=== PATIENT | female | born 1970 | race Asian ===

== ENCOUNTER 2016-10-14 19:22 | Emergency (ER) | payer OTHER ==
[2016-10-14 19:25] VITALS: BP 129/70; PULSE 70; RESP 16; TEMP 99.5; O2SAT 100
--- NOTE | 2016-10-14 19:31 | PD ---
Physical Exam Date Seen by Provider: Oct 14, 2016 Time Seen by Provider: 19:29 Narrative 45 yo female here for lacerations to index and middle finger right hand. Happened earlier today. With a lawnmower. Amputation noted. dressing applied at triage. No other medical issues. Vitals are stable in triage. Awaiting Bed placement. Data Data Last Documented VS Vital Signs Date Time Temp Pulse Resp B/P Pulse Ox O2 Delivery O2 Flow Rate FiO2 10/14/16 19:25 99.5 70 16 129/70 100 Room Air [facility] Medical Record Reviewed: Yes Supervised Visit with DHEERAJ: Des Mcconnell Oct 14, 2016 19:30
[2016-10-14] MEDS ORDERED: SODIUM CHLOR 0.9% 1000 ML INJ 1,000 ML IV SCH (19:52)
[2016-10-14] MEDS ORDERED: TETANUS/DIPHTHERIA TOXOID ADULT 0.5 ML VIAL IM ONE (20:00)
[2016-10-14] MEDS ORDERED: SODIUM CHLORIDE 0.9% FLUSH 10 ML FLUSH IV FLUSH PRN (20:00)
[2016-10-14] MEDS ORDERED: ONDANSETRON HCL 4 MG/2 ML VIAL IVP ONE (20:00)
[2016-10-14] MEDS ORDERED: ceFAZolin 2 GM PREMIX 50 ML IV ONE (20:00)
[2016-10-14] MEDS ORDERED: MORPHINE SULFATE 4 MG/ML INJ IV PUSH ONE (20:00)
--- NOTE | 2016-10-14 20:22 | PD ---
HPI Chief Complaint: Laceration/Skin Injury Time Seen by Provider: 20:16 Travel History International Travel<30 days: Yes Contact w/Intl Traveler<30days: Yes Name of Country Traveled to: [place] Traveled to known affect area: Yes History of Present Illness HPI 45-year-old left-hand dominant female presents to the ED for evaluation of partial amputation of second and third digits of the right hand. 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 She is unsure of the date of her last tetanus immunization. Last ate around 1:30 this afternoon, full lunch. PFSH Past Medical History Medical History: Denies Significant Hx ?: Not Past Surgical History Surgical History: No Previous Surgery Section: Yes Social History Alcohol Use: No Tobacco Use: No Allergies-Medications (Allergen,Severity, Reaction): Coded Allergies: No Known Allergies (Unverified , 10/14/16) Reported Meds & Prescriptions Reported Meds & Active Scripts Active Ultram (Tramadol HCl) 50 Mg Tab 50 Mg PO Q4H PRN Doxycycline Hyclate 100 Mg Cap 100 Mg PO BID Review of Systems Except as stated in HPI: all other systems reviewed are Neg Physical Exam Narrative GENERAL: Well-nourished, well-developed petite female in no acute distress. SKIN: Focused skin assessment warm/dry. HEAD: Normocephalic. EYES: No scleral icterus. No injection or drainage. NECK: Supple, trachea midline. No JVD or lymphadenopathy. CARDIOVASCULAR: Regular rate and rhythm without murmurs, gallops, or rubs. RESPIRATORY: Breath sounds equal bilaterally. No accessory muscle use. GASTROINTESTINAL: Abdomen soft, non-tender, nondistended. MUSCULOSKELETAL: No cyanosis, or edema. FOCUSED RIGHT UPPER EXTREMITY EXAM: 2+ radial pulse. Partial amputation of the distal tips of digits 2 and 3. No pulsatile bleeding. Sensation intact. Satisfactory capillary refill. Patient retains active motion of the fingers, though this elicits pain. BACK: Nontender without obvious deformity. No CVA tenderness. Data Data Last Documented VS Vital Signs Date Time Temp Pulse Resp B/P Pulse Ox O2 Delivery O2 Flow Rate FiO2 10/14/16 19:25 99.5 70 16 129/70 100 Room Air Orders Basic Metabolic Panel (Bmp) (10/14/16 19:52) Complete Blood Count With Diff (10/14/16 19:52) Iv Access Insert/Monitor (10/14/16 19:52) Morphine Inj (Morphine Inj) (10/14/16 20:00) Ondansetron Inj (Zofran Inj) (10/14/16 20:00) Sodium Chlor 0.9% 1000 Ml Inj (Ns 1000 M (10/14/16 19:52) Sodium Chloride 0.9% Flush (Ns Flush) (10/14/16 20:00) Cefazolin 2 Gm Premix (Ancef 2 Gm Premix (10/14/16 20:00) Tetanus/Diphtheria Tox Adult (Tetanus/Di (10/14/16 20:00) Hand, Limited (2vws) (10/14/16 19:52) NPO (10/14/16 19:58) Bupivacaine Pf 0.5% Inj (Marcaine Pf 0.5 (10/14/16 20:30) Labs Laboratory Tests Test 10/14/16 20:10 White Blood Count 9.6 TH/MM3 Red Blood Count 4.22 MIL/MM3 Hemoglobin 12.8 GM/DL Hematocrit 37.8 % Mean Corpuscular Volume 89.6 FL Mean Corpuscular Hemoglobin 30.3 PG Mean Corpuscular Hemoglobin 33.8 % Concent Red Cell Distribution Width 13.8 % Platelet Count 190 TH/MM3 Mean Platelet Volume 8.2 FL Neutrophils (%) (Auto) 80.6 % Lymphocytes (%) (Auto) 13.0 % Monocytes (%) (Auto) 3.8 % Eosinophils (%) (Auto) 1.8 % Basophils (%) (Auto) 0.8 % Neutrophils # (Auto) 7.7 TH/MM3 Lymphocytes # (Auto) 1.2 TH/MM3 Monocytes # (Auto) 0.4 TH/MM3 Eosinophils # (Auto) 0.2 TH/MM3 Basophils # (Auto) 0.1 TH/MM3 CBC Comment DIFF FINAL Differential Comment Sodium Level 137 MEQ/L Potassium Level 3.8 MEQ/L Chloride Level 105 MEQ/L Carbon Dioxide Level 25.2 MEQ/L Anion Gap 7 MEQ/L Blood Urea Nitrogen 11 MG/DL Creatinine 0.65 MG/DL Estimat Glomerular Filtration 98 ML/MIN Rate Random Glucose 111 MG/DL Calcium Level 8.4 MG/DL MDM Medical Decision Making Medical Screen Exam Complete: Yes Emergency Medical Condition: Yes Differential Diagnosis Laceration versus traumatic amputation versus open fracture versus A for tetanus immunization versus other Narrative Course 45-year-old left-hand dominant female presents to the ED for evaluation of partial amputation of second and third digits of the right hand. 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 She is unsure of the date of her last tetanus immunization. Last ate around 1:30 this afternoon, full lunch. Vitals reviewed. On physical exam there is traumatic amputation of the distal tips of fingers 2 and 3 of the right hand. No pulsatile bleeding. Cap refill is satisfactory. Sensation intact. Range of motion intact but painful. IV was established. Patient was administered 2 g Ancef, 1 L fluid, 2 mg morphine, 4 mg Zofran IV. X-rays reveal amputation of the distal tips of 2 and 3 with comminuted fractures per my read. I sent pictures to Dr. Terrell and spoke with him by phone. He will come to the emergency room to evaluate the patient. He was ordered nothing by mouth in case surgery in the OR is necessary. Patient signed out to Dr. Mcmahon. Please see his note for disposition. Diagnosis Primary Impression: Partial traumatic transphalangeal amputation of finger Qualified Code: S68.629A - Partial traumatic transphalangeal amputation of finger, initial encounter Referrals: Meli Terrell MD Patient Instructions: Finger Amputation (ED), General Instructions Additional Instructions: Rest, hydrate. Keep her wounds clean, dry and covered. Follow-up with Dr. Terrell as discussed. Return to the ED for any urgent or emergent medical condition. Scripts Tramadol (Ultram)50 Mg Tab50 Mg PO Q4H PRN (PAIN) #28 TAB Prov:Nadeem Mcmahon MD 10/14/16 Doxycycline Hyclate 100 Mg [id number] Mg PO BID #20 CAP Prov:Nadeem Mcmahon MD 10/14/16 Disposition: 01 DISCHARGE HOME Condition: Stable Melida Pérez Oct 14, 2016 20:22
[2016-10-14 20:27] LABS: AUTOMATED NEUTROPHIL # 7.7 TH/MM3 (1.8-7.7); BASOPHIL # 0.1 TH/MM3 (0-0.2); BASOPHIL % 0.8 % (0.0-2.0); EOSINOPHIL # 0.2 TH/MM3 (0-0.4); EOSINOPHIL % 1.8 % (0.0-4.0); HEMATOCRIT 37.8 % (35.0-46.0); HEMO FLAGS DIFF FINAL; LYMPHOCYTE # 1.2 TH/MM3 (1.0-4.8); MEAN CELL VOLUME 89.6 FL (80.0-100.0); MEAN CORPUSCULAR HEMOGLOBIN 30.3 PG (27.0-34.0); MEAN CORPUSCULAR HGB CONC 33.8 % (32.0-36.0); MONO % 3.8 % (0.0-8.0); NEUT % 80.6 % (16.0-70.0); PLATELET COUNT 190 TH/MM3 (150-450); RED BLOOD COUNT 4.22 MIL/MM3 (4.00-5.30); RED CELL DISTRIBUTION WIDTH 13.8 % (11.6-17.2); WHITE BLOOD COUNT 9.6 TH/MM3 (4.0-11.0)
[2016-10-14] MEDS ORDERED: BUPIVACAINE HCL PF 0.5% 30 ML VIAL INFIL ONE (20:30)
--- NOTE | 2016-10-14 20:33 | RADRPT ---
EXAM DATE/TIME: 10/14/2016 20:07 [place] COMPARISON: No previous studies available for comparison. INDICATIONS : Right hand second and third digit pain. Patient states amputation by mariana eddy. MEDICAL HISTORY : None. SURGICAL HISTORY : None. ENCOUNTER: Initial ACUITY: 1 day PAIN SCORE: 10/10 LOCATION: Right hand. Second and third digits. FINDINGS: Two view examination of the right hand demonstrates partial amputation of the distal phalanges of the second and third fingers with soft tissue lacerations. No other fractures. CONCLUSION: 1. Partial amputation of the distal second and third fingers with comminuted fractures of the distal phalanges. Serafin Mcnair MD on October 14, 2016 at 20:30 Board Certified Radiologist. This report was verified electronically.
[2016-10-14 20:41] LABS: BICARBONATE 25.2 MEQ/L (21.0-32.0); POTASSIUM 3.8 MEQ/L (3.5-5.1)
[2016-10-14] MEDS ORDERED: ULTR50TA5 PO (22:45)
[2016-10-14] MEDS ORDERED: DOXY100C PO (22:45)
--- NOTE | 2016-10-14 22:46 | PD ---
Physical Exam Narrative GENERAL: SKIN: Warm and dry. HEAD: Atraumatic. Normocephalic. EYES: Pupils equal and round. No scleral icterus. No injection or drainage. ENT: No nasal bleeding or discharge. Mucous membranes pink and moist. NECK: Trachea midline. No JVD. CARDIOVASCULAR: Regular rate and rhythm. RESPIRATORY: No accessory muscle use. Clear to auscultation. Breath sounds equal bilaterally. GASTROINTESTINAL: Abdomen soft, non-tender, nondistended. Hepatic and splenic margins not palpable. MUSCULOSKELETAL: SEE DR WOOTEN'S NOTE FOR PROCEDURE AND EXAM NEUROLOGICAL: Awake and alert. No obvious cranial nerve deficits. Motor grossly within normal limits. Five out of 5 muscle strength in the arms and legs. Normal speech. PSYCHIATRIC: Appropriate mood and affect; insight and judgment normal. Data Data Last Documented VS Vital Signs Date Time Temp Pulse Resp B/P Pulse Ox O2 Delivery O2 Flow Rate FiO2 10/14/16 19:25 99.5 70 16 129/70 100 Room Air Orders Basic Metabolic Panel (Bmp) (10/14/16 19:52) Complete Blood Count With Diff (10/14/16 19:52) Iv Access Insert/Monitor (10/14/16 19:52) Morphine Inj (Morphine Inj) (10/14/16 20:00) Ondansetron Inj (Zofran Inj) (10/14/16 20:00) Sodium Chlor 0.9% 1000 Ml Inj (Ns 1000 M (10/14/16 19:52) Sodium Chloride 0.9% Flush (Ns Flush) (10/14/16 20:00) Cefazolin 2 Gm Premix (Ancef 2 Gm Premix (10/14/16 20:00) Tetanus/Diphtheria Tox Adult (Tetanus/Di (10/14/16 20:00) Hand, Limited (2vws) (10/14/16 19:52) NPO (10/14/16 19:58) Bupivacaine Pf 0.5% Inj (Marcaine Pf 0.5 (10/14/16 20:30) Labs Laboratory Tests Test 10/14/16 20:10 White Blood Count 9.6 TH/MM3 Red Blood Count 4.22 MIL/MM3 Hemoglobin 12.8 GM/DL Hematocrit 37.8 % Mean Corpuscular Volume 89.6 FL Mean Corpuscular Hemoglobin 30.3 PG Mean Corpuscular Hemoglobin 33.8 % Concent Red Cell Distribution Width 13.8 % Platelet Count 190 TH/MM3 Mean Platelet Volume 8.2 FL Neutrophils (%) (Auto) 80.6 % Lymphocytes (%) (Auto) 13.0 % Monocytes (%) (Auto) 3.8 % Eosinophils (%) (Auto) 1.8 % Basophils (%) (Auto) 0.8 % Neutrophils # (Auto) 7.7 TH/MM3 Lymphocytes # (Auto) 1.2 TH/MM3 Monocytes # (Auto) 0.4 TH/MM3 Eosinophils # (Auto) 0.2 TH/MM3 Basophils # (Auto) 0.1 TH/MM3 CBC Comment DIFF FINAL Differential Comment Sodium Level 137 MEQ/L Potassium Level 3.8 MEQ/L Chloride Level 105 MEQ/L Carbon Dioxide Level 25.2 MEQ/L Anion Gap 7 MEQ/L Blood Urea Nitrogen 11 MG/DL Creatinine 0.65 MG/DL Estimat Glomerular Filtration 98 ML/MIN Rate Random Glucose 111 MG/DL Calcium Level 8.4 MG/DL [facility] Medical Record Reviewed: Yes Supervised Visit with DHEERAJ: No Physician Communication Physician Communication DR WOOTEN CAME TO BEDSIDE TO REPAIR AND TAKE CARE OF PATIENT, HE RECC D/C ON MOTRIN 800 AND ANY OTHER ADDITIONAL PAIN MEDICATION ALONG WITH ABX (BACTRIM OR DOXY) AND TO FOLLOW UP AT HIS OFFICE Diagnosis Primary Impression: Partial traumatic transphalangeal amputation of finger Qualified Code: S68.629A - Partial traumatic transphalangeal amputation of finger, initial encounter Referrals: Meli Wooten MD CALL OFFICE IN AM FOR FURTHER FOLLOW UP CARE Patient Instructions: General Instructions, Finger Amputation (ED) Additional Instruction: Rest, hydrate. Keep her wounds clean, dry and covered. Follow-up with Dr. Wooten as discussed. Return to the ED for any urgent or emergent medical condition. Scripts Tramadol (Ultram)50 Mg Tab50 Mg PO Q4H PRN (PAIN) #28 TAB Prov:Nadeem Mcmahon MD 10/14/16 Doxycycline Hyclate 100 Mg [id number] Mg PO BID #20 CAP Prov:Nadeem Mcmahon MD 10/14/16 Disposition: 01 DISCHARGE HOME Condition: Stable Nadeem Mcmahon MD Oct 14, 2016 22:46
--- NOTE | 2016-10-15 14:05 | MB ---
cc: ZACKERY WOOTEN M.D. DATE OF CONSULTATION: 10/14/2016 REASON FOR CONSULTATION: Injury to the right second and third digits HISTORY OF PRESENT ILLNESS The patient is a 45-year-old female who was attempting to cut grass and was trying to remove some grass which was clumped from beneath a planner internship. Her had disabled the safety shut off device so the blade was spinning and the patient suffered an injury to the right index and middle fingertips. Consultation is requested regarding evaluation and treatment of this injury. PAST MEDICAL HISTORY The patient is otherwise well. ALLERGIES None. MEDICATIONS None. REVIEW OF SYSTEMS Review of systems is negative in detail. She denies high blood pressure, diabetes, heart disease, kidney disease of liver disease or disease of liver or other infectious etiology. 10 systems reviewed and all negative except as pertaining to the injury. SOCIAL HISTORY The patient denies alcohol or tobacco consumption. PHYSICAL EXAMINATION: IN GENERAL: On examination the patient is lying comfortably on a stretcher. HEAD, EYES, EARS, NOSE, AND THROAT: Her extraocular muscles are intact. Pupils are equal round and reactive to light. A mouth is clear. NECK: Neck is supple without masses. LUNGS: Her Lungs are clear. HEART: Her heart has a regular rate and rhythm. EXTREMITIES: Examination of the upper extremities reveals a partial amputation to the tips of her second and third digits. The majority of the nailbed and plates are missing, although a small amount is present on each fingertip there is survival of volar tissue on both digits. The remaining tissue does appear to be adequately perfused. RADIOLOGIC: Examination of the x-ray reveals the fractures and bone loss to the distal portion of each distal phalanx. IMPRESSION The patient has partial amputation to the tips of the right index and middle finger. PLAN: The plan is operative repair. The patient understands, accepts the risks and complications of surgery as well as the need to possibly shortening the fingers. MD LAURENCE Swartz/gloria /1:04 PM /1:33 PM
--- NOTE | 2016-10-16 23:32 | MP ---
cc: ZACKERY WOOTEN MD DATE OF SURGERY 10/14/16 PREOPERATIVE DIAGNOSIS 1. Mower injury with partial amputation to the tip of the right index finger. 2. Lawn-mower injury partial amputation to the tip of the right third finger. POSTOPERATIVE DIAGNOSIS 1. Mower injury with partial amputation to the tip of the right index finger. 2. Lawn-mower injury partial amputation to the tip of the right third finger. PROCEDURE 1. Excisional debridement of open wounds of the index and middle fingers of the right hand including bone excision. 2. Closure of the wounds of the right index finger with a local flap. 3. Repair of the traumatic amputation of the tip of the right third finger with local flap. ANESTHESIA Local SURGEON Sharyn Wooten MD INDICATIONS A 45-year-old female who injured her right hand while clearing grass from a patient service associate. FINDINGS The patient did lose the tips of the distal phalanges two different levels with fragmentation of the bone. There was some contamination with grass. At the completion of the procedure, the wounds had been cleaned out and excisionally debrided including bone and closed with local flaps. Operative time was 1 hour and 20 minutes. Tourniquet time on the index finger was 35 minutes. The tourniquet time on the middle finger was 40 minutes PROCEDURE IN DETAIL The patient was seen in the emergency room where the operation was performed. Her fingers had been anesthetized by the PA previously and the right hand was prepped with Betadine and draped in usual sterile fashion. Under loupe magnification, the rongeur was used to remove the bone from both fingertips. Attention then turned to the index finger where a tourniquet was placed using a rolled up glove finger. Then after copious irrigation and removal of dirt, debris and grass and removal of bone shards, the local tissue was advanced by incising the tissue and advancing it to close the skin. The nail bed was repaired to the remaining tissue after excising part of the flap with 5-0 Prolene suture material and the remainder of the wound was closed in a similar fashion. The flap was designed as the tissue was rotated in order to get the best functional and cosmetic result. After 40 minutes, the tourniquet was released and removed. Attention was then turned to the middle finger where the tourniquet was placed using a rolled up glove finger from a sterile glove. Irrigation was copious with gentle lavage as was on the index finger. Tissue was debrided. Bone fragments were removed. Shards of bone were rongeured back and the flap was then rotated in, incised and sewn into place with 5-0 Prolene suture material. Once this was completed, the tourniquet was removed after 35 minutes of tourniquet time. Both areas were then cleansed of Betadine and blood and dressed with povidone-iodine ointment, Adaptic, Telfa, 4x4s and Myriam. The patient was then discharged back to the care of the ER staff in satisfactory condition having tolerated the procedure well. Postoperative instructions include keeping the hand elevated, keeping it clean and dry and returning in several days for follow up. The ER staff were instructed to give her a prescription for 800 of ibuprofen every 8 hours as needed for pain as well as a prescription for an antibiotic with broad coverage such as Bactrim or doxycycline. Patient is to follow up in several days in my office. MD LAURENCE Swartz/ /1:07 PM /11:23 PM
== END 2016-10-14 23:03 | disposition home or self-care (01) ==
LOC: NEPD 19:22
DX: S68.122A Partial traumatic metacarpophalangeal amputation of right middle finger, initial encounter (principal); W31.89XA Contact with other specified machinery, initial encounter; S61.200A Unspecified open wound of right index finger without damage to nail, initial encounter
CPT/HCPCS: 73120; 80048; 85025; 90471; 90714; 96365; 96375; 99284; J0690; J2270; J2405; J7030